=== PATIENT | female | born 1955 | race Caucasian/White ===

== ENCOUNTER 2016-05-18 14:23 | Emergency (ER) | payer MEDICARE, OTHER ==
[2016-05-18 15:19] LABS: BASOPHIL 0.6 % (0-2); EOSINOPHIL 1.8 % (0-5); HCT 43.2 % (37.0-47.0); HGB 14.5 g/dl (12.5-16.0); MCH 30.8 pg (25.0-31.0); MCHC 33.6 g/dL (32.0-36.0); MCV 91.7 fL (78.0-100.0); MONOCYTE 11.3 % (0-12); MPV 11.1 fL (6.0-9.5); NEUTROPHIL 59.3 % (41-80); PLT 248 K/uL (150-400); RBC 4.71 M/uL (4.20-5.40); RDW 13.4 % (11.5-14.0); WBC 8.2 K/uL (4.0-10.5)
[2016-05-18 15:51] LABS: BILIRUBIN NEGATIVE (NEGATIVE); BLOOD NEGATIVE Ery/uL (NEGATIVE); CLARITY CLEAR (CLEAR); COLOR YELLOW (YELLOW); GLUCOSE (U) NORMAL (NORMAL); KETONE (U) NEGATIVE (NEGATIVE); LEUKOCYTES TRACE Leu/uL (NEGATIVE); NITRITE NEGATIVE (NEGATIVE); PROTEIN NEGATIVE (NEGATIVE); SPECIFIC GRAVITY 1.015 (1.001-1.030); UROBILINOGEN 0.2 mg/dL (0.2-1.0); pH 6.5 (5.0-9.0)
[2016-05-18 15:54] LABS: BACTERIA TRACE; URINARY RBC RARE
[2016-05-18 16:50] LABS: ALBUMIN 4.4 g/dL (3.5-5.0); BILIRUBIN - TOTAL 0.4 mg/dL (0.1-1.0); CREATININE 0.9 mg/dL (0.5-1.0); GLOBULIN (CALCULATION) 3.2 g/dL (2.2-4.2); POTASSIUM 4.1 mmol/L (3.5-5.1); TOTAL PROTEIN 7.6 g/dL (6.4-8.3)
== END 2016-05-18 17:15 | disposition home or self-care (01) ==
LOC: FER 14:23
PROVIDERS: Nurse Practitioner Family
DX: N39.0 Urinary tract infection, site not specified (principal); J02.9 Acute pharyngitis, unspecified; R07.9 Chest pain, unspecified; J44.9 Chronic obstructive pulmonary disease, unspecified; I25.2 Old myocardial infarction; Z79.82 Long term (current) use of aspirin; Z79.51 Long term (current) use of inhaled steroids; Z79.899 Other long term (current) drug therapy; Z95.5 Presence of coronary angioplasty implant and graft
CPT/HCPCS: 36415; 80053; 81001; 82150; 83690; 84484; 85025; 87450; 87804; 87899; 93005

== ENCOUNTER 2016-07-06 07:51 | Emergency (ER) | payer MEDICARE, OTHER ==
[2016-07-06 09:02] LABS: BILIRUBIN NEGATIVE (NEGATIVE); BLOOD NEGATIVE Ery/uL (NEGATIVE); CLARITY CLEAR (CLEAR); COLOR YELLOW (YELLOW); GLUCOSE (U) NORMAL (NORMAL); HGB 14.4 g/dl (12.5-16.0); KETONE (U) NEGATIVE (NEGATIVE); LEUKOCYTES 1+ Leu/uL (NEGATIVE); MCH 30.6 pg (25.0-31.0); MCHC 33.5 g/dL (32.0-36.0); MCV 91.3 fL (78.0-100.0); MPV 10.4 fL (6.0-9.5); NITRITE NEGATIVE (NEGATIVE); PROTEIN NEGATIVE (NEGATIVE); RBC 4.71 M/uL (4.20-5.40); SPECIFIC GRAVITY <=1.005 (1.001-1.030); UROBILINOGEN 0.2 mg/dL (0.2-1.0); WBC 7.8 K/uL (4.0-10.5); pH 6.5 (5.0-9.0)
[2016-07-06 09:18] LABS: ALBUMIN 4.3 g/dL (3.5-5.0); BILIRUBIN - TOTAL 0.7 mg/dL (0.1-1.0); CREATININE 0.9 mg/dL (0.5-1.0); GLOBULIN (CALCULATION) 3.3 g/dL (2.2-4.2); POTASSIUM 4.2 mmol/L (3.5-5.1); TOTAL PROTEIN 7.6 g/dL (6.4-8.3)
[2016-07-06 09:29] LABS: BACTERIA 2+
== END 2016-07-06 12:46 | disposition home or self-care (01) ==
LOC: FER 07:51
PROVIDERS: Internal Medicine
DX: K58.0 Irritable bowel syndrome with diarrhea (principal); K76.0 Fatty (change of) liver, not elsewhere classified; I10 Essential (primary) hypertension; J44.9 Chronic obstructive pulmonary disease, unspecified; K21.9 Gastro-esophageal reflux disease without esophagitis; E78.5 Hyperlipidemia, unspecified; Z88.1 Allergy status to other antibiotic agents; Z79.82 Long term (current) use of aspirin; Z79.02 Long term (current) use of antithrombotics/antiplatelets; Z79.51 Long term (current) use of inhaled steroids; Z79.899 Other long term (current) drug therapy; Z95.5 Presence of coronary angioplasty implant and graft
CPT/HCPCS: 36415; 76705; 80053; 81001; 83690; 84484; 93005; J1170; J1885; J2405; Q9967

== ENCOUNTER 2016-07-12 14:31 | Emergency (ER) | payer MEDICARE, OTHER | END 2016-07-12 17:05 | disposition home or self-care (01) | LOC: FER 14:31 | DX: M79.642 Pain in left hand (principal); M79.672 Pain in left foot; M79.671 Pain in right foot; M54.5 Low back pain; I11.9 Hypertensive heart disease without heart failure; E78.5 Hyperlipidemia, unspecified; Z88.0 Allergy status to penicillin; Z79.82 Long term (current) use of aspirin; Z79.02 Long term (current) use of antithrombotics/antiplatelets; Z79.899 Other long term (current) drug therapy; W19.XXXA Unspecified fall, initial encounter | CPT/HCPCS: 72110; 73130; 73630; 99284 ==

== ENCOUNTER 2016-08-12 21:59 | Day surgery (SDCO) | payer OTHER ==
[~2016-08-12] VITALS: Ht 168.9 cm; Wt 124.1 kg
[2016-08-12 22:15] LABS: BASOPHIL 0.2 % (0-2); EOSINOPHIL 3.3 % (0-5); HCT 40.4 % (37.0-47.0); HGB 13.5 g/dl (12.5-16.0); LYMPHOCYTE 28.7 % (15-48); MCH 30.8 pg (25.0-31.0); MCHC 33.4 g/dL (32.0-36.0); MONOCYTE 7.6 % (0-12); MPV 10.3 fL (6.0-9.5); NEUTROPHIL 60.2 % (41-80); PLT 253 K/uL (150-400); RBC 4.39 M/uL (4.20-5.40); RDW 14.1 % (11.5-14.0); WBC 8.4 K/uL (4.0-10.5)
[2016-08-12 22:26] LABS: INR 0.97 (0.9-1.2); PROTHROMBIN TIME 12.5 SECONDS (11.7-14.0)
[2016-08-12 22:27] LABS: PTT 30.5 SECONDS (23.2-31.4)
[2016-08-12 22:28] LABS: D-DIMER 1.18 ug/mLFEU (0.00-0.41)
[2016-08-12 22:33] LABS: LACTIC ACID 1.7 mmol/L (0.5-2.2)
[2016-08-12 22:36] LABS: CKMB 1.19 ng/mL (0.97-4.94); MYOGLOBIN 21 ng/mL (26-65); PRO-BNP 51 pg/mL (0-125); TROPONIN T < 0.010 ng/mL
[2016-08-12 22:37] LABS: ALBUMIN 4.1 g/dL (3.5-5.0); BILIRUBIN - TOTAL 0.3 mg/dL (0.1-1.0); GLOBULIN (CALCULATION) 3.1 g/dL (2.2-4.2); MAGNESIUM 2.3 mg/dL (1.40-2.10); TOTAL PROTEIN 7.2 g/dL (6.4-8.3)
[2016-08-12 23:23] LABS: BILIRUBIN NEGATIVE (NEGATIVE); BLOOD NEGATIVE Ery/uL (NEGATIVE); CLARITY CLEAR (CLEAR); COLOR YELLOW (YELLOW); GLUCOSE (U) NORMAL (NORMAL); KETONE (U) NEGATIVE (NEGATIVE); LEUKOCYTES NEGATIVE Leu/uL (NEGATIVE); NITRITE NEGATIVE (NEGATIVE); PROTEIN NEGATIVE (NEGATIVE); UROBILINOGEN 0.2 mg/dL (0.2-1.0)
[2016-08-13 04:21] LABS: BASOPHIL 0.1 % (0-2); EOSINOPHIL 0.1 % (0-5); HCT 38.5 % (37.0-47.0); HGB 12.8 g/dl (12.5-16.0); LYMPHOCYTE 8.1 % (15-48); MCH 30.8 pg (25.0-31.0); MCHC 33.2 g/dL (32.0-36.0); MCV 92.8 fL (78.0-100.0); MONOCYTE 1.2 % (0-12); MPV 10.3 fL (6.0-9.5); NEUTROPHIL 90.5 % (41-80); PLT 234 K/uL (150-400); RBC 4.15 M/uL (4.20-5.40); RDW 14.2 % (11.5-14.0); WBC 10.1 K/uL (4.0-10.5)
[2016-08-13 04:34] LABS: CREATININE 0.9 mg/dL (0.5-1.0); POTASSIUM 3.7 mmol/L (3.5-5.1); TROPONIN T < 0.010 ng/mL
[2016-08-13 11:01] LABS: CKMB 1.07 ng/mL (0.97-4.94); TROPONIN T < 0.010 ng/mL
--- NOTE | 2016-08-13 14:27 | NUR ---
AT 1405 PT CALLED OUT STATING SHE WAS HAVING CHEST PAIN TO NECK AND JAW AND RATED A 10. 0.4 MG SL NITRO GIVEN, ORDER FOR STAT EKG GIVEN. MD CALLED TO [facility]. ORDER GIVEN FOR MORPHINE 2 MG IV AND 1 INCH NITRO PASTE. EKG SHOWED NSR WITH NO ISCHEMIC CHANGES. PAIN DOWN TO A 4 OR 5. EMS HERE TO TRANSPORT PT TO [facility].
== END 2016-08-13 14:20 | disposition other institution (70) ==
LOC: FER 21:59 → FICU 08-13 00:50
PROVIDERS: Emergency Medicine Emergency Medical Services; ADMIT Internal Medicine
DX: R07.9 Chest pain, unspecified (principal); I25.2 Old myocardial infarction; Z95.5 Presence of coronary angioplasty implant and graft; J44.9 Chronic obstructive pulmonary disease, unspecified; I10 Essential (primary) hypertension; E78.5 Hyperlipidemia, unspecified; R59.9 Enlarged lymph nodes, unspecified; Z82.49 Family history of ischemic heart disease and other diseases of the circulatory system; F32.9 Major depressive disorder, single episode, unspecified; Z87.891 Personal history of nicotine dependence; Z90.710 Acquired absence of both cervix and uterus; Z88.1 Allergy status to other antibiotic agents
CPT/HCPCS: 36415; 36600; 71010; 71275; 80048; 80053; 80061; 81003; 82550; 82553; 82803; 83605; 83735; 83874; 83880; 84484; 85025; 85379; 85610; 85730; 87040; 87088; 93005; 94010; 94640; 96372; G0378; J2270; J2405; J2930; Q9967

== ENCOUNTER 2020-03-08 12:18 | Emergency (ER) | payer OTHER, SELFPAY ==
[~2020-03-08 12:18] MED LIST: 8 HOUR650 MG PO; ANTIVERT25 MG PO; ASPIRIN EC81 MG PO; B COMPLEX WITH1 EACH PO; BACLOFEN 10MG T10 MG PO; BANOPHEN50 MG PO; BENTYL10 MG PO; BUMEX1 MG PO; CARAFATE1 GM PO; CEFDINIR300 MG PO; CLARITIN10 MG PO; COLACE100 MG PO; DOXYCYCLINE MO100 MG PO; DUONEB 2.5-0.5M1 AMP INH; HCTZ25 MG PO; HYDROCODON-ACE1 EAC4 PO; IRON18 MG PO; KLOR-CON M20 T20 MEQ PO; LACTINEX1 EACH PO; LEVAQUIN750 MG PO; LEVSIN-SL0.125 MG SL; LIPITOR40 MG PO; LOPRESSOR25 MG PO; MEDROL 4MG DOSEP4 MG PO; METOPROLOL SUCC25 MG PO; METRONIDAZOLE500 MG PO; MOBIC7.5 MG PO; MYLICON80 MG PO; NITROSTAT0.4 MG PO; NORCO 5-325 TA1 EACH PO; PERCOCET 5-3251 EACH PO; PLAVIX75 MG PO; PREDNISONE 20MG20 MG PO; PRINIVIL10 MG PO; PROTONIX 40MG T40 MG PO; PROVENTIL HFA6.7 GM INH; PROZAC20 MG PO; SPIRIVA RESPIMAT4 G1 INH; SYMBICORT 80-10.2 GM INH; TESSALON PERLE100 MG PO; VENTOLIN (2.5 MG/3 M INH; VIBRAMYCIN100 MG PO; VITAMIN D1000 UNI1 PO; VITAMIN D31000 UNIT PO; ZANTAC150 MG PO; ZOFRAN4 MG PO
[2020-03-08 13:42] LABS: BASOPHIL 0.6 % (0-2); EOSINOPHIL 2.4 % (0-7); HCT 42.8 % (37.0-47.0); HGB 13.8 g/dl (12.5-16.0); LYMPHOCYTE 17.4 % (15-48); MCH 31.4 pg (25.0-31.0); MCHC 32.2 g/dL (32.0-36.0); MCV 97.5 fL (78.0-100.0); MONOCYTE 8.3 % (0-12); MPV 10.4 fL (6.0-9.5); NEUTROPHIL 70.9 % (41-80); NRBC 0; PLT 228 K/uL (150-400); RBC 4.39 M/uL (4.20-5.40); RDW 13.2 % (11.5-14.0)
[2020-03-08 13:54] LABS: INR 1.02 (0.9-1.2); PROTHROMBIN TIME 12.7 SECONDS (11.4-13.6); PTT 31.6 SECONDS (22.2-34.7)
[2020-03-08 14:11] LABS: ALBUMIN 3.5 g/dL (3.4-5.0); BILIRUBIN - TOTAL 0.4 mg/dL (0.2-1.0); CREATININE 0.79 mg/dL (0.51-0.95); GLOBULIN (CALCULATION) 3.6 g/dL; POTASSIUM 4.6 mmol/L (3.5-5.1); TOTAL PROTEIN 7.1 g/dL (6.4-8.2)
[2020-07-19] MEDS ORDERED: WOMEN'S DAILY1 EAC1 PO (15:34)
[2020-07-26] MEDS ORDERED: PERCOCET 5-3251 EACH PO (07:06)
[2020-09-14] MEDS ORDERED: MYLANTA PO (12:42)
== END 2020-03-08 15:21 | disposition home or self-care (01) ==
LOC: FER 12:18
PROVIDERS: Emergency Medicine
DX: R07.89 Other chest pain (principal); M54.9 Dorsalgia, unspecified; R06.02 Shortness of breath; R20.2 Paresthesia of skin; R42 Dizziness and giddiness; I10 Essential (primary) hypertension; Z95.5 Presence of coronary angioplasty implant and graft; Z20.822 Contact with and (suspected) exposure to COVID-19
CPT/HCPCS: 36415; 71045; 80053; 84484; 85025; 85610; 85730; 93005; J2060; J2270; J2405; U0002

== ENCOUNTER 2020-05-10 09:38 | Emergency (ER) | payer OTHER ==
[2020-05-10 10:53] LABS: BASOPHIL 0.5 % (0-2); EOSINOPHIL 1.5 % (0-7); HCT 45.6 % (37.0-47.0); HGB 14.5 g/dl (12.5-16.0); LYMPHOCYTE 7.2 % (15-48); MCH 30.7 pg (25.0-31.0); MCHC 31.8 g/dL (32.0-36.0); MCV 96.6 fL (78.0-100.0); MONOCYTE 6.8 % (0-12); MPV 10.4 fL (6.0-9.5); NEUTROPHIL 83.6 % (41-80); NRBC 0; PLT 239 K/uL (150-400); RBC 4.72 M/uL (4.20-5.40); RDW 13.6 % (11.5-14.0); WBC 9.1 K/uL (4.0-10.5)
[2020-05-10 11:12] LABS: ALBUMIN 3.5 g/dL (3.4-5.0); BILIRUBIN - TOTAL 0.4 mg/dL (0.2-1.0); BUN/CREAT RATIO (CALC) 15.1 RATIO; CREATININE 0.86 mg/dL (0.51-0.95); GLOBULIN (CALCULATION) 4.1 g/dL; POTASSIUM 4.6 mmol/L (3.5-5.1); TOTAL PROTEIN 7.6 g/dL (6.4-8.2)
[2020-05-10 11:21] LABS: PRO-BNP 44 pg/mL (<125)
[2020-05-10 11:31] LABS: BILIRUBIN NEGATIVE (NEGATIVE); BLOOD TRACE-INTACT Ery/uL (NEGATIVE); CLARITY CLEAR (CLEAR); COLOR YELLOW (YELLOW); GLUCOSE (U) NORMAL (NORMAL); LEUKOCYTES 2+ Leu/uL (NEGATIVE); NITRITE NEGATIVE (NEGATIVE); PROTEIN NEGATIVE (NEGATIVE); UROBILINOGEN 0.2 mg/dL (0.2-1.0)
[2020-05-10 11:40] LABS: BACTERIA 2+; URINARY RBC RARE
[2020-05-10] MEDS ORDERED: MACRODANTIN25 MG PO (15:04)
[2020-05-10] MEDS ORDERED: NORCO 5-325 TA1 EACH PO (15:04)
[2020-07-19] MEDS ORDERED: WOMEN'S DAILY1 EAC1 PO (15:34)
[2020-07-26] MEDS ORDERED: PERCOCET 5-3251 EACH PO (07:06)
[2020-09-14] MEDS ORDERED: MYLANTA PO (12:42)
== END 2020-05-10 15:46 | disposition home or self-care (01) ==
LOC: FER 09:38
PROVIDERS: Emergency Medicine
DX: N39.0 Urinary tract infection, site not specified (principal); R42 Dizziness and giddiness; I10 Essential (primary) hypertension; Z88.1 Allergy status to other antibiotic agents; Z79.899 Other long term (current) drug therapy
CPT/HCPCS: 36415; 71045; 80053; 81001; 82550; 83605; 83735; 83880; 84145; 84484; 85025; 93005; J0696; J1885; J7030

== ENCOUNTER 2020-06-14 17:27 | Emergency (ER) | payer OTHER, SELFPAY ==
[~2020-06-14 17:27] MED LIST changes: +MACRODANTIN25 MG PO
[2020-06-14 19:32] LABS: BASOPHIL 0.5 % (0-2); EOSINOPHIL 2.1 % (0-7); HCT 39.4 % (37.0-47.0); HGB 13.3 g/dl (12.5-16.0); LYMPHOCYTE 15.4 % (15-48); MCHC 33.8 g/dL (32.0-36.0); MCV 94.9 fL (78.0-100.0); MONOCYTE 7.5 % (0-12); NRBC 0; PLT 228 K/uL (150-400); RBC 4.15 M/uL (4.20-5.40); RDW 14.3 % (11.5-14.0); WBC 9.5 K/uL (4.0-10.5)
[2020-06-14 19:47] LABS: ALBUMIN 3.3 g/dL (3.4-5.0); BILIRUBIN - TOTAL 0.3 mg/dL (0.2-1.0); BUN/CREAT RATIO (CALC) 19.4 RATIO; CREATININE 0.98 mg/dL (0.51-0.95); GLOBULIN (CALCULATION) 3.8 g/dL; POTASSIUM 3.6 mmol/L (3.5-5.1); TOTAL PROTEIN 7.1 g/dL (6.4-8.2)
[2020-06-14 20:00] LABS: LACTIC ACID 1.9 mmol/L (0.4-1.9)
[2020-06-14] MEDS ORDERED: VENTOLIN (2.5 MG/3 M INH (22:59)
[2020-06-14] MEDS ORDERED: MEDROL 4MG DOSEP4 MG PO (22:59)
[2020-06-14] MEDS ORDERED: LEVAQUIN750 MG PO (22:59)
[2020-07-19] MEDS ORDERED: WOMEN'S DAILY1 EAC1 PO (15:34)
[2020-07-26] MEDS ORDERED: PERCOCET 5-3251 EACH PO (07:06)
[2020-09-14] MEDS ORDERED: MYLANTA PO (12:42)
== END 2020-06-14 23:14 | disposition home or self-care (01) ==
LOC: FER 17:27
PROVIDERS: Emergency Medicine Emergency Medical Services
DX: J44.1 Chronic obstructive pulmonary disease with (acute) exacerbation (principal); R07.89 Other chest pain; J98.11 Atelectasis; I25.10 Atherosclerotic heart disease of native coronary artery without angina pectoris; Z88.1 Allergy status to other antibiotic agents; Z95.5 Presence of coronary angioplasty implant and graft
CPT/HCPCS: 36415; 36600; 71046; 80053; 82803; 83605; 84484; 85025; 85379; 93005; 94640; 94664; J2930

== ENCOUNTER 2020-07-26 08:22 | Day surgery (SDCO) | payer OTHER ==
[~2020-07-26] VITALS: Ht 167.6 cm; Wt 125.9 kg
[~2020-07-26 08:22] MED LIST changes: +WOMEN'S DAILY1 EAC1 PO
[2020-07-26 09:23] LABS: HGB 13.7 g/dl (12.5-16.0); MCH 31.2 pg (25.0-31.0); MCHC 32.6 g/dL (32.0-36.0); MCV 95.7 fL (78.0-100.0); MPV 10.8 fL (6.0-9.5); RBC 4.39 M/uL (4.20-5.40); RDW 13.9 % (11.5-14.0)
[2020-07-26 09:28] LABS: ALBUMIN 3.7 g/dL (3.4-5.0); BILIRUBIN - TOTAL 0.4 mg/dL (0.2-1.0); BUN/CREAT RATIO (CALC) 23.1 RATIO; CREATININE 0.91 mg/dL (0.51-0.95); TOTAL PROTEIN 7.7 g/dL (6.4-8.2)
--- NOTE | 2020-07-27 08:10 | NUR ---
HOME OXYGEN WALK TEST PERFORMED ON PATIENT, PATIENT SATS ON ROOM AIR 93%, WALKING ROOM AIR SATS 90%. PATIENT DOES NOT QUALIFY FOR HOME O2
--- NOTE | 2020-07-27 10:21 | NUR ---
PT HAD AN ELECTIVE RIGHT SHOULDER ARTHROSCOPY ROTATOR CUFF REPAIR. SHE WAS ADMITED OBS DUE TO BREATHING DIFFICULTIES AND NOT BEING ABLE TO MAINTAIN HER SATS. PER BRAIN PT DOES NOT HAVE ANY NEEDS. PER CHITO ENCINAS, WALK TEST WAS NORMAL AND PT WILL NOT REQUIRE ANY OXYGEN. PER BRAIN ORTHO LIASON, PT ROLANDO DC HOME WITH SPOUSE THIS DATE.
[2020-07-27] MEDS ORDERED: DULERA 200 MCG8.8 GM INH (11:18)
[2020-09-14] MEDS ORDERED: MYLANTA PO (12:42)
== END 2020-07-27 12:33 | disposition home or self-care (01) ==
LOC: FAS 08:22 → FMS 16:57
PROVIDERS: Orthopaedic Surgery; ADMIT Allergy & Immunology Allergy
DX: M75.121 Complete rotator cuff tear or rupture of right shoulder, not specified as traumatic (principal); M19.011 Primary osteoarthritis, right shoulder; M25.811 Other specified joint disorders, right shoulder; R09.02 Hypoxemia; J44.9 Chronic obstructive pulmonary disease, unspecified; J98.6 Disorders of diaphragm; I10 Essential (primary) hypertension; I25.10 Atherosclerotic heart disease of native coronary artery without angina pectoris; E78.5 Hyperlipidemia, unspecified; G89.29 Other chronic pain; M54.2 Cervicalgia; M54.9 Dorsalgia, unspecified; I25.2 Old myocardial infarction; F32.9 Major depressive disorder, single episode, unspecified; F41.1 Generalized anxiety disorder; M19.90 Unspecified osteoarthritis, unspecified site; Z98.84 Bariatric surgery status; Z87.891 Personal history of nicotine dependence; Z86.73 Personal history of transient ischemic attack (TIA), and cerebral infarction without residual deficits; Z95.5 Presence of coronary angioplasty implant and graft; Z91.030 Bee allergy status; Z88.1 Allergy status to other antibiotic agents; Z91.048 Other nonmedicinal substance allergy status; Z79.02 Long term (current) use of antithrombotics/antiplatelets; Z79.891 Long term (current) use of opiate analgesic; Z79.82 Long term (current) use of aspirin; Z79.899 Other long term (current) drug therapy
CPT/HCPCS: 36415; 71045; 80053; 93005; 94010; 94640; G0378; J0171; J0690; J1100; J2250; J2405; J2704; J2795; J2920; J3010; J7120

== ENCOUNTER 2020-08-03 16:22 | Emergency (ER) | payer OTHER ==
[~2020-08-03 16:22] MED LIST changes: +DULERA 200 MCG8.8 GM INH
[2020-08-03 18:01] LABS: BASOPHIL 0.7 % (0-2); EOSINOPHIL 6.6 % (0-7); HCT 39.1 % (37.0-47.0); HGB 12.8 g/dl (12.5-16.0); LYMPHOCYTE 24.3 % (15-48); MCH 31.5 pg (25.0-31.0); MCHC 32.7 g/dL (32.0-36.0); MCV 96.3 fL (78.0-100.0); MONOCYTE 10.3 % (0-12); MPV 10.8 fL (6.0-9.5); NEUTROPHIL 57.8 % (41-80); NRBC 0; PLT 257 K/uL (150-400); RBC 4.06 M/uL (4.20-5.40); RDW 13.4 % (11.5-14.0); WBC 8.8 K/uL (4.0-10.5)
[2020-08-03 18:10] LABS: ALBUMIN 3.4 g/dL (3.4-5.0); BILIRUBIN - TOTAL 0.4 mg/dL (0.2-1.0); CREATININE 0.94 mg/dL (0.51-0.95); GLOBULIN (CALCULATION) 3.3 g/dL; POTASSIUM 3.8 mmol/L (3.5-5.1); TOTAL PROTEIN 6.7 g/dL (6.4-8.2)
[2020-08-03 18:22] LABS: CKMB 2.3 ng/mL (0.0-3.6)
[2020-09-14] MEDS ORDERED: MYLANTA PO (12:42)
== END 2020-08-03 18:57 | disposition home or self-care (01) ==
LOC: FER 16:22
PROVIDERS: Emergency Medicine
DX: E87.70 Fluid overload, unspecified (principal); I11.0 Hypertensive heart disease with heart failure; I50.9 Heart failure, unspecified; I25.10 Atherosclerotic heart disease of native coronary artery without angina pectoris; J44.9 Chronic obstructive pulmonary disease, unspecified; Z87.891 Personal history of nicotine dependence; Z95.5 Presence of coronary angioplasty implant and graft; Z88.1 Allergy status to other antibiotic agents; Z82.49 Family history of ischemic heart disease and other diseases of the circulatory system
CPT/HCPCS: 36415; 71046; 80053; 82553; 84484; 85025; 93005; J1940

== ENCOUNTER 2020-08-23 16:22 | Day surgery (SDCO) | payer OTHER ==
[~2020-08-23] VITALS: Ht 167.6 cm; Wt 121.6 kg
[2020-08-23 17:58] LABS: BASOPHIL 0.5 % (0-2); EOSINOPHIL 3.7 % (0-7); HCT 42.9 % (37.0-47.0); HGB 14.2 g/dl (12.5-16.0); LYMPHOCYTE 21.3 % (15-48); MCH 31.8 pg (25.0-31.0); MCHC 33.1 g/dL (32.0-36.0); MONOCYTE 10.4 % (0-12); MPV 10.7 fL (6.0-9.5); NEUTROPHIL 63.7 % (41-80); NRBC 0; PLT 264 K/uL (150-400); RBC 4.47 M/uL (4.20-5.40); RDW 13.5 % (11.5-14.0); WBC 7.8 K/uL (4.0-10.5)
[2020-08-23 18:24] LABS: ALBUMIN 3.6 g/dL (3.4-5.0); BILIRUBIN - TOTAL 0.3 mg/dL (0.2-1.0); BUN/CREAT RATIO (CALC) 16.7 RATIO; CREATININE 0.84 mg/dL (0.51-0.95); GLOBULIN (CALCULATION) 4.2 g/dL; TOTAL PROTEIN 7.8 g/dL (6.4-8.2)
[2020-08-23 18:30] LABS: PRO-BNP 55 pg/mL (<125)
[2020-08-24] MEDS ORDERED: DUONEB 2.5-0.5M1 AMP INH (00:22)
[2020-08-24] MEDS ORDERED: ASPIRIN EC81 MG PO (00:22)
[2020-08-24] MEDS ORDERED: LIPITOR40 MG PO (00:23)
[2020-08-24] MEDS ORDERED: PLAVIX75 MG PO (00:23)
[2020-08-24] MEDS ORDERED: BENADRYL25 MG PO (00:23)
[2020-08-24] MEDS ORDERED: HCTZ25 MG PO (00:24)
[2020-08-24] MEDS ORDERED: PROZAC20 MG PO (00:24)
[2020-08-24] MEDS ORDERED: HYOSCYAMINE0.125 MG PO (00:26)
[2020-08-24] MEDS ORDERED: LISINOPRIL10 MG PO (00:27)
[2020-08-24] MEDS ORDERED: MAXIMUM DAILY1 EAC1 PO (00:28)
[2020-08-24] MEDS ORDERED: SPIRIVA18 MCG INH (00:29)
[2020-08-24 05:52] LABS: BASOPHIL 0.7 % (0-2); HCT 41.2 % (37.0-47.0); HGB 13.6 g/dl (12.5-16.0); LYMPHOCYTE 26.8 % (15-48); MCH 31.6 pg (25.0-31.0); MCV 95.6 fL (78.0-100.0); MONOCYTE 9.8 % (0-12); MPV 10.4 fL (6.0-9.5); NEUTROPHIL 58.4 % (41-80); NRBC 0; PLT 255 K/uL (150-400); RBC 4.31 M/uL (4.20-5.40); RDW 13.5 % (11.5-14.0); WBC 7.5 K/uL (4.0-10.5)
[2020-08-24 06:07] LABS: BUN/CREAT RATIO (CALC) 15.9 RATIO; CREATININE 0.88 mg/dL (0.51-0.95); POTASSIUM 4.1 mmol/L (3.5-5.1)
[2020-09-14] MEDS ORDERED: MYLANTA PO (12:42)
== END 2020-08-24 10:45 | disposition home or self-care (01) ==
LOC: FER 16:22 → FMS 22:20
PROVIDERS: Emergency Medicine; Nurse Practitioner; ADMIT Allergy & Immunology Allergy
DX: J44.1 Chronic obstructive pulmonary disease with (acute) exacerbation (principal); I25.10 Atherosclerotic heart disease of native coronary artery without angina pectoris; I10 Essential (primary) hypertension; Z95.5 Presence of coronary angioplasty implant and graft; E78.5 Hyperlipidemia, unspecified; I25.2 Old myocardial infarction; F32.9 Major depressive disorder, single episode, unspecified; F41.1 Generalized anxiety disorder; Z90.49 Acquired absence of other specified parts of digestive tract; Z90.710 Acquired absence of both cervix and uterus; Z87.891 Personal history of nicotine dependence; Z79.82 Long term (current) use of aspirin; Z79.01 Long term (current) use of anticoagulants; Z20.822 Contact with and (suspected) exposure to COVID-19; Z98.51 Tubal ligation status; Z88.1 Allergy status to other antibiotic agents
CPT/HCPCS: 36415; 71045; 71275; 80048; 80053; 83605; 83880; 84145; 84484; 85025; 85379; 87040; 93005; 94640; G0378; J1650; J2405; Q9967; U0002

== ENCOUNTER 2020-10-04 05:54 | Day surgery (SDC) | payer OTHER ==
[~2020-10-04] VITALS: Ht 168 cm; Wt 122.0 kg
[~2020-10-04 05:54] MED LIST changes: +BENADRYL25 MG PO; +HYOSCYAMINE0.125 MG PO; +LISINOPRIL10 MG PO; +MAXIMUM DAILY1 EAC1 PO; +MYLANTA PO; +SPIRIVA18 MCG INH
[2020-10-04] MEDS ORDERED: PERCOCET 5-3251 EACH PO (07:06)
[2020-10-05 05:11] LABS: BUN/CREAT RATIO (CALC) 20.7 RATIO; CREATININE 0.82 mg/dL (0.51-0.95); POTASSIUM 4.2 mmol/L (3.5-5.1)
[2020-10-05 05:28] LABS: BASOPHIL 0.3 % (0-2); EOSINOPHIL 0.4 % (0-7); HCT 39.7 % (37.0-47.0); HGB 12.7 g/dl (12.5-16.0); LYMPHOCYTE 12.9 % (15-48); MCH 30.5 pg (25.0-31.0); MCV 95.4 fL (78.0-100.0); MONOCYTE 7.9 % (0-12); MPV 10.7 fL (6.0-9.5); NEUTROPHIL 78.1 % (41-80); NRBC 0; PLT 268 K/uL (150-400); RBC 4.16 M/uL (4.20-5.40); RDW 13.3 % (11.5-14.0); WBC 11.7 K/uL (4.0-10.5)
[2020-10-05] MEDS ORDERED: FEOSOL325 MG PO (08:29)
--- NOTE | 2020-10-05 10:08 | NUR ---
10/05/20 Patient was provided with resources for home delivered meals through [employer] and [facility] [employer]. She was also educated to [facility] services.
--- NOTE | 2020-10-05 13:50 | NUR ---
PT. HAD A RIGHT REVERSE TOTAL SHOULDER REPLACEMENT ON 10/04/20. SHE HAS A CANE. SHE IS GOING TO THE HOME OF HER FRIEND, PAULO CHIUER, AT [address] [place] [address], [facility]. HOWEVER, HE RESIDES IN [facility]. PT. REQUESTED [facility] AND HAS BEEN ACCEPTED. PT. SIGNED CHOICE FORM.
== END 2020-10-05 14:41 | disposition home health service (06) ==
LOC: FAS 05:54 → FMS 09:00 → EDSTATUS 09:00 → FAS 09:00
PROVIDERS: Orthopaedic Surgery
DX: M19.011 Primary osteoarthritis, right shoulder (principal); J43.9 Emphysema, unspecified; M79.89 Other specified soft tissue disorders
CPT/HCPCS: 36415; 73020; 80048; 85025; 86850; 86900; 86901; 94010; 97162; 97166; 97530-GP; 97535; C1713; C1776; J0171; J0697; J1100; J1200; J1885; J2250; J2270; J2370; J2405; J2704; J2795; J3010; J7120

== ENCOUNTER 2020-11-03 18:44 | Emergency (ER) | payer OTHER ==
[~2020-11-03 18:44] MED LIST changes: +FEOSOL325 MG PO
== END 2020-11-03 23:06 | disposition home or self-care (01) ==
LOC: FER 18:44
DX: S93.402A Sprain of unspecified ligament of left ankle, initial encounter (principal); S80.02XA Contusion of left knee, initial encounter; S80.01XA Contusion of right knee, initial encounter; S40.011A Contusion of right shoulder, initial encounter; S80.812A Abrasion, left lower leg, initial encounter; J44.9 Chronic obstructive pulmonary disease, unspecified; Z88.1 Allergy status to other antibiotic agents; W17.89XA Other fall from one level to another, initial encounter; Y92.009 Unspecified place in unspecified non-institutional (private) residence as the place of occurrence of the external cause
CPT/HCPCS: 73030; 73560; 73600

== ENCOUNTER 2021-02-20 11:57 | Emergency (ER) | payer OTHER ==
[2021-02-20 13:22] LABS: BASOPHIL 0.4 % (0-2); EOSINOPHIL 1.7 % (0-7); HCT 43.9 % (37.0-47.0); HGB 13.9 g/dl (12.5-16.0); LYMPHOCYTE 16.9 % (15-48); MCH 29.8 pg (25.0-31.0); MCHC 31.7 g/dL (32.0-36.0); MONOCYTE 7.1 % (0-12); MPV 10.5 fL (6.0-9.5); NEUTROPHIL 73.5 % (41-80); NRBC 0; PLT 246 K/uL (150-400); RBC 4.67 M/uL (4.20-5.40); RDW 15.3 % (11.5-14.0)
[2021-02-20 13:53] LABS: BUN 20 mg/dL (7-18); BUN/CREAT RATIO (CALC) 23.5 RATIO; CHLORIDE 104 mmol/L (98-107); CO2 (BICARBONATE) 29 mmol/L (21-32); CREATININE 0.85 mg/dL (0.51-0.95); GLUCOSE 89 mg/dL (74-106); POTASSIUM 4.5 mmol/L (3.5-5.1)
== END 2021-02-20 16:22 | disposition home or self-care (01) ==
LOC: FER 11:57
PROVIDERS: Internal Medicine
DX: R07.89 Other chest pain (principal); I25.2 Old myocardial infarction; J44.9 Chronic obstructive pulmonary disease, unspecified; Z88.8 Allergy status to other drugs, medicaments and biological substances
CPT/HCPCS: 36415; 71045; 80048; 83880; 84145; 84484; 85025; 93005

== ENCOUNTER 2021-03-20 17:58 | Emergency (ER) | payer OTHER ==
[2021-03-20 18:44] LABS: BASOPHIL 0.5 % (0-2); EOSINOPHIL 2.5 % (0-7); HCT 42.3 % (37.0-47.0); HGB 13.4 g/dl (12.5-16.0); MCH 30.6 pg (25.0-31.0); MCHC 31.7 g/dL (32.0-36.0); MCV 96.6 fL (78.0-100.0); NEUTROPHIL 76.3 % (41-80); NRBC 0; PLT 253 K/uL (150-400); RBC 4.38 M/uL (4.20-5.40); RDW 15.7 % (11.5-14.0); WBC 11.2 K/uL (4.0-10.5)
[2021-03-20 18:56] LABS: INR 1.01 (0.9-1.2); PROTHROMBIN TIME 12.7 SECONDS (11.8-13.4); PTT 27.8 SECONDS (24.4-34.7)
[2021-03-20 19:12] LABS: ALBUMIN 3.2 g/dL (3.4-5.0); ALKALINE PHOSHATASE 124 U/L (46-116); ALT 39 U/L (14-59); AST 22 U/L (15-37); BILIRUBIN - TOTAL 0.2 mg/dL (0.2-1.0); BUN 18 mg/dL (7-18); BUN/CREAT RATIO (CALC) 18.8 RATIO; CHLORIDE 105 mmol/L (98-107); CO2 (BICARBONATE) 27 mmol/L (21-32); CREATININE 0.96 mg/dL (0.51-0.95); GLOBULIN (CALCULATION) 3.7 g/dL; GLUCOSE 109 mg/dL (74-106); POTASSIUM 4.1 mmol/L (3.5-5.1); TOTAL PROTEIN 6.9 g/dL (6.4-8.2)
[2021-03-20 23:17] LABS: CORONAVIRUS 2019 SARS-COV-2 NEGATIVE (NEGATIVE); INFLUENZA A NAA NEGATIVE (NEGATIVE)
[2021-03-21] MEDS ORDERED: NORCO 5-325 TA1 EACH PO (02:25)
== END 2021-03-21 02:45 | disposition home or self-care (01) ==
LOC: FER 17:58
PROVIDERS: Internal Medicine
DX: R07.89 Other chest pain (principal); I25.2 Old myocardial infarction; I10 Essential (primary) hypertension; Z20.822 Contact with and (suspected) exposure to COVID-19; Z95.5 Presence of coronary angioplasty implant and graft; Z88.1 Allergy status to other antibiotic agents; Z86.73 Personal history of transient ischemic attack (TIA), and cerebral infarction without residual deficits; Z79.82 Long term (current) use of aspirin; Z79.899 Other long term (current) drug therapy
CPT/HCPCS: 36415; 71045; 71275; 80053; 83880; 84484; 85025; 85379; 85610; 85730; 93005; J2270; J2405; Q9967; U0002

== ENCOUNTER 2021-04-02 21:34 | Emergency (ER) | payer OTHER ==
[2021-04-02 22:40] LABS: CORONAVIRUS 2019 SARS-COV-2 NEGATIVE (NEGATIVE); INFLUENZA A NAA NEGATIVE (NEGATIVE)
[2021-04-02 23:00] LABS: BASOPHIL 0.5 % (0-2); EOSINOPHIL 2.6 % (0-7); HCT 41.8 % (37.0-47.0); HGB 13.4 g/dl (12.5-16.0); LYMPHOCYTE 15.1 % (15-48); MCH 30.5 pg (25.0-31.0); MCHC 32.1 g/dL (32.0-36.0); MCV 95.2 fL (78.0-100.0); MONOCYTE 8.4 % (0-12); MPV 10.2 fL (6.0-9.5); NEUTROPHIL 72.8 % (41-80); NRBC 0; PLT 259 K/uL (150-400); RBC 4.39 M/uL (4.20-5.40); RDW 15.4 % (11.5-14.0); WBC 11.5 K/uL (4.0-10.5)
[2021-04-02 23:22] LABS: BUN 17 mg/dL (7-18); BUN/CREAT RATIO (CALC) 21.5 RATIO; CHLORIDE 105 mmol/L (98-107); CO2 (BICARBONATE) 28 mmol/L (21-32); CREATININE 0.79 mg/dL (0.51-0.95); GLUCOSE 97 mg/dL (74-106); POTASSIUM 3.8 mmol/L (3.5-5.1)
[2021-04-03] MEDS ORDERED: VIBRAMYCIN100 MG PO (03:13)
[2021-04-03] MEDS ORDERED: PREDNISONE 20MG20 MG PO (03:14)
== END 2021-04-03 05:27 | disposition home or self-care (01) ==
LOC: FER 21:34
PROVIDERS: Nurse Practitioner Family
DX: R07.89 Other chest pain (principal); I25.10 Atherosclerotic heart disease of native coronary artery without angina pectoris; I10 Essential (primary) hypertension; J45.909 Unspecified asthma, uncomplicated; Z20.822 Contact with and (suspected) exposure to COVID-19
CPT/HCPCS: 36415; 71045; 71275; 80048; 83880; 84484; 85025; 93005; J2270; J2405; J3475; Q9967; U0002

== ENCOUNTER 2021-04-09 20:50 | Emergency (ER) | payer OTHER | END 2021-04-09 21:28 | disposition home or self-care (01) | LOC: FER 20:50 | DX: S80.811A Abrasion, right lower leg, initial encounter (principal); J44.9 Chronic obstructive pulmonary disease, unspecified; I25.10 Atherosclerotic heart disease of native coronary artery without angina pectoris; W22.8XXA Striking against or struck by other objects, initial encounter; Y92.009 Unspecified place in unspecified non-institutional (private) residence as the place of occurrence of the external cause ==

== ENCOUNTER 2021-06-07 16:36 | Emergency (ER) | payer OTHER ==
[2021-06-07] MEDS ORDERED: NORCO 5-325 TA1 EACH PO (21:37)
== END 2021-06-07 21:47 | disposition home or self-care (01) ==
LOC: FER 16:36
DX: S81.811A Laceration without foreign body, right lower leg, initial encounter (principal); I10 Essential (primary) hypertension; J45.909 Unspecified asthma, uncomplicated; Z87.891 Personal history of nicotine dependence; Z91.041 Radiographic dye allergy status; Z23 Encounter for immunization; Z88.8 Allergy status to other drugs, medicaments and biological substances; Z91.018 Allergy to other foods; W22.03XA Walked into furniture, initial encounter; Y92.009 Unspecified place in unspecified non-institutional (private) residence as the place of occurrence of the external cause
CPT/HCPCS: 73590; 90471; 90715

== ENCOUNTER 2021-08-04 17:32 | Emergency (ER) | payer OTHER ==
[2021-08-04 18:00] LABS: BASOPHIL 0.3 % (0-2); EOSINOPHIL 0.6 % (0-7); HCT 42.5 % (37.0-47.0); HGB 13.8 g/dl (12.5-16.0); LYMPHOCYTE 11.2 % (15-48); MCH 31.2 pg (25.0-31.0); MCHC 32.5 g/dL (32.0-36.0); MCV 96.2 fL (78.0-100.0); MONOCYTE 6.6 % (0-12); MPV 10.9 fL (6.0-9.5); NEUTROPHIL 80.6 % (41-80); NRBC 0; PLT 257 K/uL (150-400); RBC 4.42 M/uL (4.20-5.40); RDW 13.6 % (11.5-14.0); WBC 14.6 K/uL (4.0-10.5)
[2021-08-04 18:11] LABS: INR 1.03 (0.9-1.2); PROTHROMBIN TIME 12.9 SECONDS (11.8-13.4); PTT 27.3 SECONDS (24.4-34.7)
[2021-08-04 18:20] LABS: ALBUMIN 3.5 g/dL (3.4-5.0); BILIRUBIN - TOTAL 0.3 mg/dL (0.2-1.0); BUN/CREAT RATIO (CALC) 25.3 RATIO; CREATININE 0.83 mg/dL (0.51-0.95); GLOBULIN (CALCULATION) 3.9 g/dL; POTASSIUM 4.1 mmol/L (3.5-5.1); TOTAL PROTEIN 7.4 g/dL (6.4-8.2)
[2021-08-04] MEDS ORDERED: PREDNISONE 20MG20 MG PO (20:26)
[2021-08-04] MEDS ORDERED: PROMETHAZINE/C120 ML PO (20:26)
[2021-08-04] MEDS ORDERED: VIBRAMYCIN100 MG PO (20:26)
== END 2021-08-04 20:40 | disposition home or self-care (01) ==
LOC: FER 17:32
PROVIDERS: Emergency Medicine
DX: J44.0 Chronic obstructive pulmonary disease with (acute) lower respiratory infection (principal); J20.9 Acute bronchitis, unspecified; J44.1 Chronic obstructive pulmonary disease with (acute) exacerbation; R07.81 Pleurodynia; Z87.891 Personal history of nicotine dependence; Z88.1 Allergy status to other antibiotic agents; Z91.030 Bee allergy status
CPT/HCPCS: 36415; 71045; 80053; 84484; 85025; 85610; 85730; 93005; J1100

== ENCOUNTER 2021-10-16 18:23 | Emergency (ER) | payer MEDICARE ==
[~2021-10-16 18:23] MED LIST changes: +PROMETHAZINE/C120 ML PO
[2021-10-16 19:11] LABS: BASOPHIL 0.5 % (0-2); EOSINOPHIL 1.3 % (0-7); HCT 41.4 % (37.0-47.0); HGB 13.5 g/dl (12.5-16.0); MCH 30.9 pg (25.0-31.0); MCHC 32.6 g/dL (32.0-36.0); MCV 94.7 fL (78.0-100.0); MONOCYTE 8.7 % (0-12); MPV 10.6 fL (6.0-9.5); NEUTROPHIL 71.2 % (41-80); NRBC 0; PLT 244 K/uL (150-400); RBC 4.37 M/uL (4.20-5.40); RDW 14.7 % (11.5-14.0); WBC 10.3 K/uL (4.0-10.5)
[2021-10-16 19:23] LABS: ALBUMIN 3.3 g/dL (3.4-5.0); ALKALINE PHOSHATASE 119 U/L (46-116); ALT 37 U/L (14-59); AST 18 U/L (15-37); BILIRUBIN - TOTAL 0.4 mg/dL (0.2-1.0); BUN 20 mg/dL (7-18); BUN/CREAT RATIO (CALC) 21.1 RATIO; CHLORIDE 106 mmol/L (98-107); CO2 (BICARBONATE) 26 mmol/L (21-32); CREATININE 0.95 mg/dL (0.51-0.95); GLOBULIN (CALCULATION) 3.2 g/dL; GLUCOSE 91 mg/dL (74-106); POTASSIUM 3.9 mmol/L (3.5-5.1); TOTAL PROTEIN 6.5 g/dL (6.4-8.2)
== END 2021-10-16 22:50 | disposition home or self-care (01) ==
LOC: FER 18:23
PROVIDERS: Emergency Medicine
DX: M79.602 Pain in left arm (principal); M79.601 Pain in right arm; R07.89 Other chest pain; J43.9 Emphysema, unspecified; E66.9 Obesity, unspecified; Z88.1 Allergy status to other antibiotic agents
CPT/HCPCS: 36415; 71045; 71275; 72193; 80053; 84484; 85025; 93005; J1885; Q9967